=== PATIENT | female | born 1975 | race Caucasian/White ===

== ENCOUNTER 2019-08-24 18:25 | Emergency (ER) | payer MEDICAID ==
[~2019-08-24] VITALS: Ht 165.1 cm; Wt 116.6 kg
[2019-08-24] MEDS ORDERED: METF-440 PO (18:36)
[2019-08-24] MEDS ORDERED: BENA40TA8 PO (18:36)
--- NOTE | 2019-08-24 18:40 | NUR ---
Patient ambulated with stable gait. Speech is clear, speaks in complete sentences. No acute neuro deficits noted. Patient came for c/o cough since 08/18/2019. Respiratory even and unlabored, cough evidenced. No acute cardiovascular distress noted, denies any cp. Patient denies any GI/ distress.
--- NOTE | 2019-08-24 18:44 | NUR ---
ERMD at bedside for MSE
[2019-08-24 19:02] VITALS: BP 135/79
--- NOTE | 2019-08-24 19:02 | NUR ---
Patient discharged to home in stable conditon. Written and verbal after care instructions given. Patient verbalizes understanding of instructions. Patient ambulated with stable gait.
== END 2019-08-24 19:03 | disposition home or self-care (01) ==
LOC: ER 18:25
DX: J20.9 Acute bronchitis, unspecified (principal); E11.9 Type 2 diabetes mellitus without complications; Z79.899 Other long term (current) drug therapy
CPT/HCPCS: A4663